=== PATIENT | female | born 1950 | race Two or more races ===

== ENCOUNTER → 2018-08-03 | Outpatient (CLI) | payer OTHER, MEDICARE | LOC: BHFA 10:45 | PROVIDERS: ATTEND Internal Medicine | DX: R06.00 Dyspnea, unspecified (principal); R68.84 Jaw pain ==

== ENCOUNTER → 2018-09-07 | Outpatient (CLI) | payer OTHER, MEDICARE | LOC: BHLMT 13:15 | PROVIDERS: ATTEND Internal Medicine Interventional Cardiology | DX: R06.02 Shortness of breath (principal) | CPT/HCPCS: 93017-PO; 93350-PO ==